=== PATIENT | female | born 1980 | race African-American/Black ===

== ENCOUNTER 2017-10-24 17:59 | Emergency (ER) | payer OTHER, SELFPAY ==
[2017-10-24] MEDS ORDERED: Ketorolac Tromethamine 60 MG/2 ML VIAL ONE (18:35)
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
== END 2017-10-24 18:50 | disposition home or self-care (01) ==
LOC: BURERS 17:59
DX: S23.3XXA Sprain of ligaments of thoracic spine, initial encounter (principal); F17.210 Nicotine dependence, cigarettes, uncomplicated; X50.9XXA Other and unspecified overexertion or strenuous movements or postures, initial encounter
CPT/HCPCS: 72072; 96372; J1885